=== PATIENT | male | born 1990 | race Caucasian/White ===

== ENCOUNTER 2022-06-03 06:53 | Emergency (ER) | payer SELFPAY ==
[2022-06-03] MEDS ORDERED: Dexamethasone 10 MG/ML VIAL ONE (07:42)
== END 2022-06-03 07:55 | disposition home or self-care (01) ==
LOC: MADERS 06:53
DX: J01.90 Acute sinusitis, unspecified (principal)
CPT/HCPCS: 96372; 99283; J1100